=== PATIENT | female | born 1990 | race Caucasian/White ===

== ENCOUNTER 2017-04-03 21:03 | Emergency (ER) | payer OTHER ==
[2017-04-03 21:13] VITALS: RESP 18
[2017-04-03] MEDS ORDERED: ONDANSETRON 4 MG/2 ML VIAL IVP STA (21:24)
[2017-04-03] MEDS ORDERED: SODIUM CHLORIDE 0.9% 2,000 ML IV STA (21:24)
[2017-04-03] MEDS ORDERED: DICYCLOMINE 10 MG/ML 2 ML AMP IM STA (21:33)
[2017-04-03] MEDS ORDERED: FAMOTIDINE 20 MG/2 ML VIAL IV STA (21:33)
--- NOTE | 2017-04-03 21:36 | ED ---
Nausea/Vomiting/Diarrhea HPI - General Chief complaint: Nausea/Vomiting/Diarrhea Stated complaint: NVD Time Seen by Provider: 04/03/17 21:09 Source: patient, EMS Mode of arrival: EMS Limitations: no limitations - History of Present Illness Initial comments: Patient presents with sudden onset vomiting and diarrhea for the past 2 hours. Patient complains of mild epigastric pain, states "my GERD is acting up". Patient denies blood in vomit or stools. Patient denies fevers or chills. Patient states she was asymptomatic earlier today leading up to sudden onset of symptoms. Denies suspicious food intake, denies contact with outside water, denies recent travel. She states she has been on amoxicillin for 5 days for strep throat. MD complaint: nausea, vomiting, diarrhea - Related Data Home Medications Medication Instructions Recorded Confirmed Amoxicillin 500 mg PO TID 04/03/17 04/03/17 Citalopram Hydrobromide [CeleXA] 20 mg PO DAILY 04/03/17 04/03/17 Fluticasone Nasal [place] [Flonase 1 spray EA NOSTRIL BID 04/03/17 04/03/17 Nasal [place]] Previous Rx's Medication Instructions Recorded Ondansetron Odt [Zofran Odt] 4 mg PO Q8HR PRN #10 tab 04/04/17 Allergies Allergy/AdvReac Type Severity Reaction Status Date / Time No Known Allergies Allergy Verified 04/03/17 22:06 Review of Systems ROS Statement: Those systems with pertinent positive or pertinent negative responses have been documented in the HPI. ROS Other: All systems not noted in ROS Statement are negative. Constitutional: Denies: fever, chills, weakness Eyes: Denies: vision change ENT: Denies: ear pain, throat pain, congestion Respiratory: Denies: cough, dyspnea, wheezes Cardiovascular: Denies: chest pain, palpitations Endocrine: Denies: fatigue Gastrointestinal: Reports: abdominal pain, nausea, vomiting, diarrhea. Denies: constipation Genitourinary: Denies: urgency, dysuria, frequency, hematuria, discharge, abnormal menses Musculoskeletal: Denies: back pain, joint swelling, arthralgia, myalgia Skin: Denies: rash, change in color Neurological: Denies: headache Past Medical History Past Medical History: Asthma Additional Past Medical History / Comment(s): degenerative disc disease, arthritis,SPONDYLOTHESIS, CERVICAL CANCER 2007 status post cryosurgery, ENDOMETOSIS, 02-27-14 RT MASTITIS History of Any Multi-Drug Resistant Organisms: None Reported Past Surgical History: Back Surgery, Section, Tubal Ligation Additional Past Surgical History / Comment(s): [facility]APY FOPR CERVICAL CA, L5-S1 DECOMPRESSION/ TITANIUM 2 RODS PLATE AND SCREWS. Past Anesthesia/Blood Transfusion Reactions: Motion Sickness Past Psychological History: Anxiety Smoking Status: Current every day smoker Past Alcohol Use History: Occasional Past Drug Use History: Marijuana, Prescription Drug Abuse - Past Family History Father Additional Family Medical History / Comment(s): DDD, HX DRUG USE(HEROIN), Mother Family Medical History: No Reported History Additional Family Medical History / Comment(s): DOES'NT GO TO DR REGULARLY General Exam - General Exam Comments Initial Comments: Pt laying in bed in diaper, appears moderate distress, states she need to have a bowel movement. No vomiting. Limitations: no limitations General appearance: alert Head exam: Present: atraumatic, normocephalic Eye exam: Present: normal appearance ENT exam: Present: mucous membranes moist Neck exam: Present: normal inspection Respiratory exam: Present: normal lung sounds bilaterally. Absent: respiratory distress, wheezes, rales Cardiovascular Exam: Present: regular rate, normal rhythm GI/Abdominal exam: Present: soft, tenderness (mild epigastric TTP). Absent: distended, guarding, rebound, rigid Extremities exam: Present: normal inspection Back exam: Present: normal inspection Neurological exam: Present: alert, oriented X3 Psychiatric exam: Present: normal affect, normal mood Skin exam: Present: warm, dry, intact, normal color. Absent: rash Course Vital Signs 04/03/17 21:04 Temperature 97.6 F Pulse Rate 60 Respiratory 18 Rate Blood Pressure 124/52 O2 Sat by Pulse 98 Oximetry Medical Decision Making - Medical Decision Making Given recent antibiotics will send Stool studies IV fluids, Bentyl, Pepcid ordered. Patient had Zofran prior to arrival by EMS White blood cell count 31. C. diff negative. No significant electrolyte abnormalities. Patient reevaluated, resting comfortably in bed, abdomen nontender, diarrhea, nausea resolved status post Reglan. Awaiting urinalysis. Patient states she cannot provide urinalysis because of diarrhea, altered Villagran, patient refused. Patient understands without obtaining urine cannot rule out or significant pathology related to , patient also understands cannot rule out severe infection requiring antibiotics and urine. Patient understands, still does not want urinalysis. Patient states that she's had tubal ligation and therefore cannot be . She agrees to follow primary care physician. Oral hydration discussed. Return to ER for new or worsening symptoms including increased abdominal pain, fevers, not tolerating oral intake. Patient understands and agrees. Elevated white blood cell count likely reactive from sudden significant vomiting and diarrhea. Afebrile in ER - Lab Data Result diagrams: 04/03/17 21:47 04/03/17 22:37 Lab Results 04/03/17 04/03/17 04/03/17 Range/Units 21:41 21:47 22:37 WBC 31.1 H* (3.8-10.6) k/uL RBC 5.27 (3.80-5.40) m/uL Hgb 15.8 (11.4-16.0) gm/dL Hct 49.0 H (34.0-46.0) % MCV 93.0 (80.0-100.0) fL MCH 30.0 (25.0-35.0) pg MCHC 32.2 (31.0-37.0) g/dL RDW 13.1 (11.5-15.5) % Plt Count 383 (150-450) k/uL Neutrophils % 90 % Lymphocytes % 4 % Monocytes % 4 % Eosinophils % 1 % Basophils % 0 % Neutrophils # 28.0 H (1.3-7.7) k/uL Lymphocytes # 1.2 (1.0-4.8) k/uL Monocytes # 1.4 H (0-1.0) k/uL Eosinophils # 0.2 (0-0.7) k/uL Basophils # 0.1 (0-0.2) k/uL Sodium 141 (137-145) mmol/L Potassium 4.8 (3.5-5.1) mmol/L Chloride 109 H (98-107) mmol/L Carbon Dioxide 19 L (22-30) mmol/L Anion Gap 13 mmol/L BUN 12 (7-17) mg/dL Creatinine 0.70 (0.52-1.04) mg/dL Est GFR (MDRD) Af Amer >60 (>60 ml/min/1.73 sqM) Est GFR (MDRD) Non-Af >60 (>60 ml/min/1.73 sqM) Glucose 174 H (74-99) mg/dL Calcium 9.0 (8.4-10.2) mg/dL Total Bilirubin 0.8 (0.2-1.3) mg/dL AST 28 (14-36) U/L ALT 23 (9-52) U/L Alkaline Phosphatase 38 (38-126) U/L Total Protein 6.6 (6.3-8.2) g/dL Albumin 4.0 (3.5-5.0) g/dL Lipase 99 (23-300) U/L C. difficile (EIA) Intrp Negative (Negative) Disposition Clinical Impression: Vomiting, Diarrhea Disposition: HOME SELF-CARE Condition: Good Instructions: Acute Nausea and Vomiting (ED), Acute Diarrhea (ED) Additional Instructions: Follow-up with primary care physician. Return to ER for new or worsening symptoms including fevers, increased abdominal pain, not tolerating oral intake. Prescriptions: Ondansetron Odt [Zofran Odt] 4 mg PO Q8HR PRN #10 tab PRN Reason: Nausea Referrals: Rosanna Angeles MD [Primary Care Provider] - 1-2 days
[2017-04-03 22:03] LABS: Basophils # (A) 0.1 k/uL (0-0.2); Basophils % (A) 0 %; Eosinophils # (A) 0.2 k/uL (0-0.7); Eosinophils % (A) 1 %; HGB 15.8 gm/dL (11.4-16.0); Lymphocytes # (A) 1.2 k/uL (1.0-4.8); Lymphocytes % (A) 4 %; MCHC 32.2 g/dL (31.0-37.0); Mean Platelet Volume 7.6; Monocytes # (A) 1.4 k/uL (0-1.0); Monocytes % (A) 4 %; Neutrophils % (A) 90 %; Platelet Count 383 k/uL (150-450); RBC 5.27 m/uL (3.80-5.40); RDW 13.1 % (11.5-15.5)
[2017-04-03 22:13] LABS: WBC 31.1 k/uL (3.8-10.6)
[2017-04-03] MEDS ORDERED: diphenhydrAMINE 50 MG/ML 1 ML VIAL IVP STA (22:17)
[2017-04-03] MEDS ORDERED: METOCLOPRAMIDE 5 MG/ML 2 ML VIAL IVP STA (22:17)
[2017-04-03 23:01] LABS: ALT 23 U/L (9-52); AST 28 U/L (14-36); Alkaline Phosphatase 38 U/L (38-126); Anion Gap 13 mmol/L; Blood Urea Nitrogen 12 mg/dL (7-17); Carbon Dioxide 19 mmol/L (22-30); Chloride 109 mmol/L (98-107); Glucose 174 mg/dL (74-99); Lipase 99 U/L (23-300); Potassium 4.8 mmol/L (3.5-5.1); Sodium 141 mmol/L (137-145); Total Bilirubin 0.8 mg/dL (0.2-1.3); Total Protein 6.6 g/dL (6.3-8.2)
[2017-04-04 00:30] LABS: Appearance,Urine Clear (Clear); Bilirubin,Urine Negative (Negative); Blood,Urine Negative (Negative); Color,Urine Yellow; Glucose,Urine (UA) Negative (Negative); Ketones,Urine 1+ (Negative); Leukocyte Esterase,Urine Negative (Negative); Nitrite,Urine Negative (Negative); Protein,Urine Negative (Negative); Specific Gravity,Urine 1.013 (1.001-1.035); Urobilinogen,Urine <2.0 mg/dL (<2.0)
[2017-04-04 00:54] VITALS: BP 135/52; PULSE 66; TEMP 98
== END 2017-04-04 00:53 | disposition home or self-care (01) ==
LOC: EC 21:03
DX: R19.7 Diarrhea, unspecified (principal); R11.2 Nausea with vomiting, unspecified; R10.13 Epigastric pain; D72.829 Elevated white blood cell count, unspecified; J45.909 Unspecified asthma, uncomplicated; F41.9 Anxiety disorder, unspecified; F17.200 Nicotine dependence, unspecified, uncomplicated; Z79.51 Long term (current) use of inhaled steroids; Z79.899 Other long term (current) drug therapy; Z85.41 Personal history of malignant neoplasm of cervix uteri; Z53.8 Procedure and treatment not carried out for other reasons
CPT/HCPCS: 36415; 80053; 83690; 85025; 81003; 81025; 87324; 87045; 89055; 87046; 99284; 96374; 96375 ×2; 96361 ×2; 96372; J1200; J0500; J2765

== ENCOUNTER → 2018-06-04 | Outpatient (CLI) | payer OTHER ==
--- NOTE | 2018-06-05 09:08 | USB ---
Reason for exam: additional evaluation requested from abnormal screening. History: Family history of breast cancer in maternal grandmother and breast cancer in paternal aunt. Excisional biopsy of the right breast, March 2014. US Breast BILAT Right complete breast ultrasound includes all four quadrants, the retroareolar region and axilla. Finding demonstrates a 0.6 x 0.5 x 0.4cm oval, mixed, hypoechoic lesion at 8 o'clock. Left complete breast ultrasound includes all four quadrants, the retroareolar region and axilla. Finding demonstrates a 0.2 x 0.2 x 0.1cm oval lesion too small to characterize at 2 o'clock. These results were verbally communicated with the patient and result sheet given to the patient on 06/04/18. ASSESSMENT: Probably benign, BI-RAD 3 RECOMMENDATION: Ultrasound of the right breast in 6 months. Manage on a clinical basis with regard to palpable abnormality.
--- NOTE | 2018-06-07 10:18 | MM ---
Reason for exam: additional evaluation requested from prior study. Last mammogram was performed 4 years and 1 month ago. History: Family history of breast cancer in maternal grandmother and breast cancer in paternal aunt. Excisional biopsy of the right breast, March 2014. Physical Findings: Nurse did not find any significant physical abnormalities on exam. [facility] Diagnostic Mammo w CAD MARKO Bilateral CC, MLO, spot compression CC, and spot compression MLO view(s) were taken. LM view(s) were taken of the left breast. Prior study comparison: May 08, 2014, bilateral [facility] diagnostic mammo w CAD MARKO. The breast tissue is heterogeneously dense. This may lower the sensitivity of mammography. There is no discrete abnormality including area of concern marked by BB. These results were verbally communicated with the patient and result sheet given to the patient on 06/04/18. ASSESSMENT: Incomplete: need additional imaging evaluation, BI-RAD 0 RECOMMENDATION: Ultrasound of the left breast.
== END | disposition home or self-care (01) ==
LOC: RADMAMWWP 14:19
PROVIDERS: ATTEND Internal Medicine
DX: N63.10 Unspecified lump in the right breast, unspecified quadrant (principal); R92.8 Other abnormal and inconclusive findings on diagnostic imaging of breast
CPT/HCPCS: 77066